=== PATIENT | male | born 1970 | race Caucasian/White ===

== ENCOUNTER → 2016-08-07 | Outpatient (CLI) | payer BC ==
[~2016-08-07] MED LIST: FISH1CAP2 PO; MULT-1175 PO; TAMS0.4C47 PO
--- NOTE | 2016-08-07 09:15 | DI ---
Indication: ITS.REASON: [id number] INJURY medial knee pain after running injury one month ago PROCEDURE: MRI KNEE RIGHT W/O CONTRAST: Encounter: Initial Comparison: Radiographs dated July 31, 2016 Technique: Multiplanar multisequence MR imaging of the right knee was performed without contrast. Findings: The lateral meniscus is normal. There is a horizontal tear involving the undersurface of the body and posterior horn medial meniscus. The ACL and PCL are normal. The MCL and lateral collateral ligament complex are intact. The extensor mechanism is intact. 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 No acute fracture. Bone marrow signal intensity is normal. The cartilage of the medial compartment is intact. Lateral compartment cartilage is intact. Patellofemoral compartment cartilage shows thinning in the lateral facet with small defects and areas of subchondral edema. No joint effusion or Núñez's cyst. Muscular signal intensity is within normal limits. Impression: Medial meniscal tear. .
== END ==
LOC: IMA 07:28
PROVIDERS: ATTEND Orthopaedic Surgery
DX: S83.241A Other tear of medial meniscus, current injury, right knee, initial encounter (principal); X58.XXXA Exposure to other specified factors, initial encounter; Y93.02 Activity, running; Y92.9 Unspecified place or not applicable; Y99.9 Unspecified external cause status